=== PATIENT | male | born 1965 | race Caucasian/White ===

== ENCOUNTER → 2017-05-22 | Outpatient (CLI) | payer OTHER ==
[~2017-05-22] MED LIST: MEVACOR PO
--- NOTE | ~2017-05-22 | US37 ---
[facility] A Service of [facility] & [facility] RADIOLOGY TEXT RESULTS PATIENT: YESICA REDDY LOCATION: SNIV : 63 UNIT #: [id number] AGE: [address]: Anastacia Ruelas MD SEX: M ORDER DR: [id number] [address] [id number] [id number] O MR#: [id number] Acc #: [id number] NAME: YESICA REDDY : 1965 SEX: M STUDY DATE/TIME: 05/22/2017 12:47 UNIT: SNIV ROOM: STUDY DESCRIPTION: US Carotid W/Doppler Bilateral Attending Physician: Anastacia Ruelas M.D. Referring Physician: Anastacia Ruelas M.D. Ordering Physician: Anastacia Ruelas M.D. Primary Care Physician: Anastacia Ruelas M.D. MEDICAL IMAGING REPORT This report is preliminary unless electronic signature is present. EXAM Bilateral carotid Doppler HISTORY Left eye blurry vision. FINDINGS The right common, internal and external carotid arteries are patent. There is heterogeneous plaque noted in the carotid bulb and internal carotid artery. Velocity of the common carotid artery is 83 cm/sec. Peak systolic velocity of the right proximal internal carotid artery is 81 cm/sec with an end-diastolic velocity of 27 cm/sec for a ICA:CCA ratio of 1.0. External carotid artery had a velocity of 98 cm/sec. The vertebral artery is visualized with antegrade flow. The left common, internal and external carotid arteries are patent with mild amounts of heterogeneous plaque in the carotid bulb and internal carotid artery. Velocity of the common carotid artery is 72 cm/sec. Peak systolic velocity of the left proximal internal carotid artery is 63 cm/sec and an end-diastolic velocity of 25 cm/sec for a ICA:CCA ratio of 0.88. External carotid artery had a velocity of 123 cm/sec. The vertebral artery is visualized with antegrade flow. IMPRESSION 1. Less than 50% stenosis of the right and left internal carotid arteries. 2. No stenosis of the external carotid arteries. 3. Antegrade flow of the vertebral arteries. [place] [facility] [place] [facility] RADIOLOGY TEXT RESULTS PATIENT: YESICA REDDY LOCATION: SNIV : 63 UNIT #: [id number] AGE: [address]: Anastacia Ruelas MD SEX: M ORDER DR: Dictated by... Rene Robert M.D. THIS IS AN ELECTRONICALLY VERIFIED REPORT Rene Robert M.D. at 05/25/2017 11:04 AM NIMA/tom TD: 05/22/2017 16:21 JOB #: [id number] MEDICAL IMAGING REPORT Page 1 of 1
== END | disposition home or self-care (01) ==
LOC: SNIV 12:47
DX: H53.8 Other visual disturbances (principal); I65.23 Occlusion and stenosis of bilateral carotid arteries
CPT/HCPCS: 93880